=== PATIENT | female | born 1950 | race Caucasian/White ===

== ENCOUNTER 2017-05-14 11:15 | Outpatient (CLI) | payer OTHER ==
[2013-07-09 06:21] VITALS: BP 138/93
--- NOTE | 2017-05-14 12:04 | Diagnostic Imaging Report ---
ADRIANA CHANEY [facility] [address] [facility].[address] [id number] Report Submission Date: May 14, 2017 11:46:39 AM CDT Patient Study Name: LORI MENDEZ Date: May 14, 2017 11:24:28 AM CDT Modality Type: DX Gender: F Description: SHOULDER : 54 Institution: [facility] Physician: ADRIANA CHANEY Examination: Plain film right shoulder History: PAIN AND SWELLING AFTER ROLLING OVER IN BED Saturday05/12/17 (Hx) Comparison exams: None provided Findings: 3 views of the right shoulder demonstrates osteopenia. No evidence for fracture or dislocation. Acromioclavicular joint degenerative changes. No soft tissue abnormality Impression: Osteopenia and degenerative changes. No acute appearing osseous process. Electronically signed on May 14, 2017 11:46:39 AM CDT by: Cristian GARCIA
== END 2017-05-14 11:16 ==
LOC: RAD 11:15
PROVIDERS: ATTEND Family Medicine
DX: M89.8X1 Other specified disorders of bone, shoulder (principal)
CPT/HCPCS: 73000

== ENCOUNTER 2017-07-03 09:21 | Outpatient (CLI) | payer OTHER ==
[2013-07-09 06:21] VITALS: BP 138/93
[2017-07-03 10:27] LABS: eGFR (African) > 60; eGFR (Non-African) > 60
== END 2017-07-03 09:55 ==
LOC: LAB 09:21
PROVIDERS: ATTEND Family Medicine
DX: Z00.00 Encounter for general adult medical examination without abnormal findings (principal)
CPT/HCPCS: 36415; 80053; 80061

== ENCOUNTER 2017-07-10 14:00 | Outpatient (CLI) | payer OTHER ==
[2013-07-09 06:21] VITALS: BP 138/93
--- NOTE | 2017-07-10 17:37 | Diagnostic Imaging Report ---
JENNY PEÑA [facility] [address] [facility].[address] [id number] Report Submission Date: July 10, 2017 3:14:44 PM CDT Patient Study Name: LROI MENDEZ Date: July 10, 2017 2:07:24 PM CDT Modality Type: DX Gender: F Description: LOWER EXTREMITY : 54 Institution: [facility] Physician: JENNY PEÑA Examination: Plain film right ankle History: RT ANKLE, PAIN IN RT ANKLE TODAY AFTER STEPPING OUT OF BED (Hx) Findings: 3 views of the right ankle demonstrates osteopenia. Articular degenerative changes. No fracture or dislocation. Talar dome is intact. Calcaneal spurs. No soft tissue swelling. No joint effusion. Impression: Osteopenia and degenerative changes. No fracture. Electronically signed on July 10, 2017 3:14:44 PM CDT by: Cristian GARCIA
== END 2017-07-10 14:02 ==
LOC: RAD 14:00
PROVIDERS: ATTEND Physician Assistant
DX: M25.571 Pain in right ankle and joints of right foot (principal)
CPT/HCPCS: 73610

== ENCOUNTER 2017-07-29 10:51 | Day surgery (SDC) | payer OTHER ==
[2013-07-09 06:21] VITALS: BP 138/93
[~2017-07-29 10:51] MED LIST: LACTATED RINGERS 1,000 ML IV.SOLN IV ONE; PROPOFOL 500 MG/50 ML VIAL IV ONE; SALINE FLUSH 10 ML DISP.SYRIN IVF ONE
--- NOTE | 2017-08-01 12:19 | GI Report ---
REFERRING PHYSICIAN: Dr. Guerda Myles O AND M SUPERVISOR: Poli Maxwell MD PROCEDURE MEDICATION: Propofol as per anesthesia. INDICATIONS: Patient had her last colonoscopy over 10 years ago. She is referred for a screening. She does have polycystic ovary syndrome. She is on metformin. She has had a number of orthopedic surgeries. No abdominal surgeries. She weighs 137 kilograms. On exam before the procedure, lungs have decreased breath sounds. Heart is regular. Abdomen, she has central obesity. PROCEDURE PERFORMED: Colonoscopy with polypectomy. PROCEDURE: An Olympus video colonoscope was advanced to the rectum. An atonic redundant colon and it took some maneuvering to finally reach the cecum. The appendiceal orifice and terminal ileum were normal. The ascending colon and transverse colon with no obvious intraluminal lesions noted. In the descending colon, the patient had 2 flat polyps about 3 mm in size removed with a cold snare between 40 and 50 cm. Sigmoid colon with some redundancy. Retroflexion of the rectum shows hemorrhoids. Patient tolerated the procedure well. FINDINGS: Two polyps removed from the descending colon. RECOMMENDATIONS: 1. Would increase fiber in the diet, Metamucil, Citrucel, etc. 2. Decrease whit carbohydrates with her insulin resistance. 3. Consider re-looking at her colon in 5 years pending the pathology of the polyps. cc: Dr. Guerda GARCIA
== END 2017-07-29 10:52 ==
LOC: OPSURG 10:51
PROVIDERS: ATTEND Internal Medicine Gastroenterology
DX: Z12.11 Encounter for screening for malignant neoplasm of colon (principal); D12.4 Benign neoplasm of descending colon
CPT/HCPCS: J2704; J7120; 45385; S1016

== ENCOUNTER 2018-10-16 09:44 | Outpatient (CLI) | payer MEDICARE, OTHER ==
[2013-07-09 06:21] VITALS: BP 138/93
[2018-10-16 10:16] LABS: BASOPHILS % 0.5 % (0.0-1.5)
[2018-10-16 10:17] LABS: NEUTROPHILS # 5.1 # k/uL (1.4-7.7)
[2018-10-16 11:12] LABS: eGFR (Non-African) 37
== END 2018-10-16 09:46 ==
LOC: LAB 09:44
PROVIDERS: ATTEND Family Medicine
DX: R53.83 Other fatigue (principal)
CPT/HCPCS: 36415; 80053; 84443; 85025

== ENCOUNTER 2018-12-10 07:57 | Outpatient (CLI) | payer MEDICARE, OTHER ==
[2013-07-09 06:21] VITALS: BP 138/93
[2018-12-10 08:53] LABS: eGFR (Non-African) 31
[2018-12-11 17:56] LABS: T3-UPTAKE SCANNED REPORT
== END 2018-12-10 08:03 ==
LOC: LAB 07:57
PROVIDERS: ATTEND Family Medicine
DX: R53.83 Other fatigue (principal); R74.8 Abnormal levels of other serum enzymes
CPT/HCPCS: 36415; 80053; 84436; 84479; 86376; 86800

== ENCOUNTER 2019-01-06 13:14 | Outpatient (CLI) | payer MEDICARE, OTHER ==
[2013-07-09 06:21] VITALS: BP 138/93
== END 2019-01-06 13:44 ==
LOC: NEPHRO 13:14
PROVIDERS: ATTEND Internal Medicine Nephrology
DX: R94.4 Abnormal results of kidney function studies (principal)
CPT/HCPCS: 99213; G0463

== ENCOUNTER 2019-01-07 07:54 | Outpatient (CLI) | payer MEDICARE, OTHER ==
[2013-07-09 06:21] VITALS: BP 138/93
--- NOTE | 2019-01-07 09:14 | Diagnostic Imaging Report ---
PATIENT MR#: [id number] PATIENT PATIENT NAME: LORI MENDEZ DATE OF : 1950 REFERRING PHYSICIAN: Gt [place] EXAM DATE: 01/07/2019 ACCESSION NUMBER: [id number] EXAM DESCRIPTION: US RETROPERITONEAL COMPLETE CLINICAL HISTORY: ACUTE RENAL INJURY. PAIN AND TIREDNESS X WEEKS TECHNIQUE: Ultrasound of the kidneys was performed. RENAL ULTRASOUND: Right kidney: 10 x 4.4 x 4.9 cm. No stones or hydronephrosis. Left kidney: 9.9 x 4.6 x 5 cm. No stones. There is minimal pelviectasis of the lower pole. Bladder: Normally distended. Bilateral ureteral jets seen. IMPRESSION: Minimal pelviectasis of the left renal lower pole, which may be associated with duplicati on of the renal collecting system and reflux of the lower moiety. This may be evaluated with CT urography, if clinica lly indicated. Read by: Dr. Rudy Davis Transcribed by: Rudy Davis Transcribed Date: 01/07/2019 9:12:50 AM Electronically signed by: Dr. Rudy Davis Date signed: 01/07/2019 9:13:51 AM
== END 2019-01-07 08:04 ==
LOC: RAD 07:54
PROVIDERS: ATTEND Internal Medicine Nephrology
DX: N17.9 Acute kidney failure, unspecified (principal)
CPT/HCPCS: 76770

== ENCOUNTER 2019-01-26 12:14 | Outpatient (CLI) | payer MEDICARE, OTHER ==
[2013-07-09 06:21] VITALS: BP 138/93
[2019-01-26 12:51] LABS: APPEARANCE,URINE CLEAR (CLEAR); COLOR,URINE YELLOW (YELLOW); OCCULT BLOOD,URINE NEGATIVE (NEGATIVE); PH URINE 5.5 (5.0 - 8.0); UROBILINOGEN URINE 0.2 Eu (0.2-1.0)
[2019-01-26 12:52] LABS: BASOPHILS % 0.3 % (0.0-1.5); NEUTROPHILS # 7.1 # k/uL (1.4-7.7)
[2019-01-26 13:09] LABS: eGFR (Non-African) > 60
== END 2019-01-26 12:19 ==
LOC: LAB 12:14
PROVIDERS: ATTEND Internal Medicine Nephrology
DX: N17.9 Acute kidney failure, unspecified (principal)
CPT/HCPCS: 36415; 80053; 81002; 84100; 85025

== ENCOUNTER 2019-01-27 15:18 | Outpatient (CLI) | payer MEDICARE, OTHER ==
[2013-07-09 06:21] VITALS: BP 138/93
== END 2019-01-27 15:58 ==
LOC: NEPHRO 15:18
PROVIDERS: ATTEND Internal Medicine Nephrology
DX: Z09 Encounter for follow-up examination after completed treatment for conditions other than malignant neoplasm (principal)
CPT/HCPCS: 99212; G0463